=== PATIENT | male | born 1955 | race Caucasian/White ===

== ENCOUNTER 2018-10-30 07:51 | Inpatient (IN) | payer OTHER ==
[~2018-10-30] VITALS: Ht 165.1 cm; Wt 101.6 kg
[~2018-10-30 07:51] MED LIST: ASPIR 8181 MG PO; BUPRO PO; CLONAZEP PO; FENOFIBR PO; LEVOTH PO; LEVOTHY PO; LOPERAMIDE PO; LOPERAMIDE2 MG PO; METROPOLO PO; NEURONTIN800 MG PO; PERCOCET 2.5-31 EACH PO; PRINIVIL20 MG PO; PROBIOTIC1 EAC4 PO; TAMS0.4C PO; ZEGERID 40 MG1 EACH PO; ZOCOR20 MG PO; [UNRECOGNIZED DRUG - OTHER]
[2018-11-01] MEDS ORDERED: DOCUSATE SODIU100 MG PO (11:12)
[2018-11-01] MEDS ORDERED: CLONAZEPAM0.5 M1 PO (11:14)
[2018-11-01] MEDS ORDERED: PERCOCET 5-3251 EACH PO (11:14)
== END 2018-11-01 13:18 | disposition home or self-care (01) | DRG 454 ==
LOC: O/R 10-31 05:58 → SURH 10-31 10:30
PROVIDERS: ADMIT Orthopaedic Surgery Orthopaedic Surgery of the Spine
PROC: 0RG2071 Fusion of 2 or more Cervical Vertebral Joints with Autologous Tissue Substitute, Posterior Approach, Posterior Column, Open Approach (ICD-10-PCS; 2018-10-31)
PROC: 0RT30ZZ Resection of Cervical Vertebral Disc, Open Approach (ICD-10-PCS; 2018-10-31)
PROC: 07DS3ZZ Extraction of Vertebral Bone Marrow, Percutaneous Approach (ICD-10-PCS; 2018-10-31)
PROC: 0RG20A0 Fusion of 2 or more Cervical Vertebral Joints with Interbody Fusion Device, Anterior Approach, Anterior Column, Open Approach (ICD-10-PCS; principal; 2018-10-31 13:00)
PROC: 4A12X4Z Monitoring of Cardiac Electrical Activity, External Approach (ICD-10-PCS; 2018-11-01)
DX: M47.12 Other spondylosis with myelopathy, cervical region (principal); M50.022 Cervical disc disorder at C5-C6 level with myelopathy; I10 Essential (primary) hypertension